=== PATIENT | female | born 1965 | race Caucasian/White ===

== ENCOUNTER 2025-01-29 13:02 | Emergency (ER) | payer OTHER, SELFPAY ==
[2025-01-29 13:06] VITALS: BP 119/89
--- NOTE | 2025-01-29 14:21 | ED.GENMED ---
History of Present Illness
General
Chief Complaint: Suicidal Ideation
Source: patient and spouse
Exam Limitations: none
Time Seen by Provider: 01/29/25 14:01
Nursing documentation reviewed up to this point in time: agreed with except (Patient denies suicidality to me)
History of Present Illness
History of Present Illness:
59-year-old female with history as noted presents to the ER for evaluation of anxiety. Patient reports that she has had significant anxiety over the past 2 to 3 years. She says that she has waxing and waning symptoms but never has relief of her
symptoms for more than a month. She has tried multiple different treatment modalities including following through her primary care physician, going for inpatient psychiatric stays (which she feels worsens her symptoms), trying multiple different
medications. Most recently she has been going to a clinic in [place] for ketamine infusions. She says that most recent adjustment to her medications aside from ketamine infusions was initiation of Zoloft a few weeks ago. She is also on Xanax
0.25 mg 4 times daily. She feels that her symptoms are poorly controlled despite all of these measures. She says she was speaking with a friend who is a nurse today who said that she should go to the ER because she has not been sleeping well, has
not been eating and drinking well due to symptoms. She denies suicidality. She denies homicidal ideation. She denies drug or alcohol use and denies smoking.
Review of Systems
Review of Systems
All Other Systems: ROS reviewed and negative except as documented in HPI and ROS
Psychiatric: Reports depression and anxiety; Denies suicidal or hallucinations
Phy Exam
Physical Exam
Physical Exam:
General: Awake and alert well-appearing female appears stated age
Head: Normocephalic, atraumatic
Eyes: Conjunctiva normal, pupils equal round and reactive to light bilaterally
Throat: Airway intact, moist mucous membranes
Neck: Trachea midline, supple without meningismus
Lungs: Clear to auscultation bilaterally, no wheezing, rales, rhonchi
Heart: Regular rate and rhythm, no murmurs, gallops, or rubs
Neuro: No gross deficits
Extremities: Warm and well-perfused with brisk capillary refill, good pulses throughout, no edema
Psych: 'Anxious' mood, normal affect, reasonable insight and judgment; she does seem to be goal oriented/future focused
Scores
Heart Failure Risk
Heart Failure Risk Score: Not Applicable
Heart Score for Chest Pain Patients
STEMI patient?: Not applicable
Withdrawal Assessment of Alcohol
Withdrawal Assessment Completed?: Not applicable
Course
Orders/Labs/Results
Orders:
Orders
01/29/25 13:07
1:1 Observation - Suicide/ Violent Behavior As Directed
Crisis Consult Urgent
Reason for Consult: +SI
01/29/25 14:17
0.9% Sodium Chloride 1000 ml [Nss] 1,000 ml IV BOLUS
Alprazolam [Xanax] 0.5 mg PO ONCE ONE
01/29/25 15:03
Complete Blood Count/No Diff Urgent
Comprehensive Metabolic Panel Urgent
Abnormal Lab Results
01/29/25
15:03
RBC 4.11 L 10^6/uL
(4.20-5.40)
Hct 35.6 L %
(37.0-47.0)
Sodium 126 L mmol/L
(135-145)
Chloride 92 L mmol/L
(98-107)
Glucose 102 H mg/dl
(70-99)
01/29/25 15:03
01/29/25 15:03
Vital Signs
Initial and Last Documented VS:
Initial Vital Signs
Temp Pulse Resp BP Pulse Ox
36.3 C 79 18 119/89 98
01/29/25 13:06 01/29/25 13:06 01/29/25 13:06 01/29/25 13:06 01/29/25 13:06
Last Documented Vital Signs
Temp Pulse Resp BP Pulse Ox
36.3 C 79 18 119/89 98
01/29/25 13:06 01/29/25 13:06 01/29/25 13:06 01/29/25 13:06 01/29/25 14:27
MDM/Problems Addressed
Differential Diagnosis Includes:
Anxiety
MDM/Problems Addressed:
59-year-old female presents with uncontrolled anxiety as described above despite multiple different outpatient treatment modalities. Currently is on Zoloft and Xanax at a low dose. She is seeking some short-term relief of her symptoms while she is
in the process of changing mental health providers�she plans to commit more fully to treatment in the city where she is currently going for intermittent ketamine infusions. She says that she has been told by her primary provider as well as friends
who are nurses that she can increase dose of Xanax and it may help her but she is anxious about doing this due to potential side effects. Will trial increased dose of Xanax. She is concerned she could be dehydrated/electrolyte depleted due to poor
appetite recently�will check screening labs and provide some fluids. Case discussed with crisis for assessment�at this point no clear indication for inpatient psychiatric treatment and I will speak with the patient it sounds like she would be
against this due to poor experiences in the past.
Labs reviewed: CBC unremarkable, CMP does show mild to moderate hyponatremia likely hypovolemic as patient says she has not been drinking. Given IV fluids. Can follow-up on this with her primary doctor. She was seen by crisis to offer additional
resources but fortunately is already fairly well plugged in for outpatient psychiatric care. Patient feeling better after emergency care. Stable for discharge�she tolerated increased dose of Xanax well, advised that she can increase dose at home
while pending further outpatient treatment.
Chronic conditions affecting care:
Anxiety
*Pulse Oximetry
SaO2: 98
Oxygen Mode of Delivery: Room air
Patient hypoxic: no (98%)
*Critical Care Note
Total Time (30-74mins, 75-104mins- exclusive of procedures): Not Applicable
Data Reviewed
Source: patient and spouse
Patient Management
Discussion with other providers: Other (Discussed with crisis staff)
Update Note
Update Note:
ED Attending Note
-
Portions of this chart may have been created with voice recognition software.� Occasional wrong word or��sound alike� substitutions may have occurred due to the inherent limitations of voice recognition software.
Discharge Plan
Departure
Patient Disposition: Home (Routine Discharge)
Date of Disposition: 01/29/25
Time of Disposition: 15:57
Patient with high blood pressure during this ER visit?: Yes
Discharge Problem:
Anxiety
Instructions: Generalized Anxiety Disorder (DC)
Prescriptions:
No Action
B-100 Complex
1 tab PO DAILY
escitalopram oxalate 10 MG tablet
5 mg PO DAILY
Biotin
7,500 mcg PO DAILY
Dicyclomine
10 mg PO TID
Multivitamin
2 tab PO DAILY
Patient Comments:
Vitamin is Ultra Woman 50 Plus
Probiotic
2 tab PO DAILY
oxycodone-acetaminophen 5 MG/325 MG tablet
1 tab PO Q4HPRN PRN (Reason: moderate to severe pain) Qty: 10 0RF
Referrals:
Timmy Quintanilla DO [Family Provider]
Activity Restrictions/Additional Instructions:
You should continue your outpatient follow-up plan as discussed in the ER. You can increase your dose of Xanax from 0.25 mg to 0.5 mg to help control your symptoms in the meantime.
Thank you for visiting the Emergency Department at [facility].
1. Please schedule a follow up appointment as directed. Call first thing tomorrow morning to make an appointment.
2. If indicated, please take your medications as instructed and indicated on discharge paperwork.
3. If any of your symptoms do not improve, or persist, or become more severe within 6-12 hours, please return to the emergency department for further care.
4. Please return to the emergency department if you develop a headache, neck pain/stiffness, fever greater than 100.4F, chest pain, shortness of breath, persistent nausea, vomiting, slurred speech, difficulty walking, numbness/tingling, weakness,
signs of infection or any other symptoms that are worrisome to you.
Please call [phone] if you have any questions.
Interventions
Interventions:
*Risk Screen - Suicide Last Done: 01/29/25 13:05
*General Assessment Last Done: 01/29/25 13:06
ED-Psychological Assessment Last Done: 01/29/25 15:39
Discharge Date and Time
Print Language: ALBANIAN
[2025-01-29] MEDS: XANAX 0.5 MG PO (14:28)
[2025-01-29] MEDS: NSS 1000 IV (14:28)
[2025-01-29 15:12] LABS: Hematocrit 35.6 % (37.0-47.0); Hemoglobin 12.6 g/dL (12.0-16.0); Mean Corp Hgb Conc. 35.4 g/dL (33.0-37.0); Mean Corpuscular Volume 86.6 fL (81.0-99.0); Platelet Count 247 10^3/uL (130-400); Red Cell Dist. Width 11.6 % (11.5-14.5)
[2025-01-29 15:31] LABS: ALT (SGPT) 16 U/L (0-35); AST (SGOT) 26 U/L (14-36); Albumin 4.7 g/dl (3.5-5.0); Alkaline Phosphatase 44 U/L (38-126); Blood Urea Nitrogen 11 mg/dl (7-17); Calcium 9.4 mg/dl (8.4-10.2); Carbon Dioxide 28 mmol/L (22-30); Chloride 92 mmol/L (98-107); Glucose 102 mg/dl (70-99); Potassium 4.8 mmol/L (3.5-5.1); Sodium 126 mmol/L (135-145); Total Protein 7.2 g/dl (6.3-8.2); eGFR > 60.00
== END 2025-01-29 18:53 | disposition home or self-care (01) ==
LOC: EMR 13:02
PROVIDERS: EMERGENCY PHYSICIAN Emergency Medicine; FAMILY PHYSICIAN Family Medicine
DX: F41.9 Anxiety disorder, unspecified (principal); R03.0 Elevated blood-pressure reading, without diagnosis of hypertension
CPT/HCPCS: 99284; 96360; 80053; 85027